=== PATIENT | female | born 1960 | race Caucasian/White ===

== ENCOUNTER → 2019-04-25 | Outpatient (CLI) | payer OTHER | LOC: M.LAB 10:20 | DX: L93.1 Subacute cutaneous lupus erythematosus (principal); R23.4 Changes in skin texture; R53.1 Weakness; R21 Rash and other nonspecific skin eruption ==

== ENCOUNTER 2021-06-09 22:30 | Emergency (ER) | payer OTHER ==
[~2021-06-09] VITALS: Ht 167.6 cm; Wt 73.5 kg
[2021-06-10] MEDS ORDERED: HYDROCODON-ACE1 EAC8 PO (02:32)
[2021-06-10] MEDS ORDERED: FLEXERIL PO (02:32)
[2021-06-10 02:52] VITALS: BP 143/84
== END 2021-06-10 02:54 | disposition home or self-care (01) ==
LOC: M.ERS 22:30
DX: S40.212A Abrasion of left shoulder, initial encounter (principal); S10.91XA Abrasion of unspecified part of neck, initial encounter; M62.830 Muscle spasm of back; M54.6 Pain in thoracic spine; M54.50 Low back pain, unspecified; M54.2 Cervicalgia; V89.2XXA Person injured in unspecified motor-vehicle accident, traffic, initial encounter; Y93.I9 Activity, other involving external motion; Y92.488 Other paved roadways as the place of occurrence of the external cause; Y99.8 Other external cause status